=== PATIENT | female | born 1960 | race American Indian/Alaskan Native ===

== ENCOUNTER 2016-11-25 15:40 | Emergency (ER) | payer OTHER, MEDICARE ==
[2016-11-25 16:20] VITALS: BP 182/79
[2016-11-25] MEDS ORDERED: NORCO 5/325 PO ONE (20:37)
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
[2016-11-25 21:01] LABS: Basophils % (Auto) 0.9 % (0.0-1.8); Eosinophils % (Auto) 2.2 % (0.0-4.3); Hematocrit 37.8 % (30.3-42.9); Hemoglobin 12.1 gm/dl (10.1-14.3); Mean Corpuscular HGB Conc 32 % (30-34); Mean Corpuscular Hemoglobin 28 pg (28-32); Mean Corpuscular Volume 86 fl (79-97); Platelet Count 260 K/mm3 (140-440); Red Blood Count 4.41 M/mm3 (3.65-5.03); Red Cell Distribution Width 14.6 % (13.2-15.2); White Blood Count 4.1 K/mm3 (4.5-11.0)
[2016-11-25 21:20] LABS: Anion Gap 16 mmol/L; BUN/Creatinine Ratio 18.75; Blood Urea Nitrogen 15 mg/dL (7-17); Calcium 9.4 mg/dL (8.4-10.2); Carbon Dioxide 27 mmol/L (22-30); Chloride 97.3 mmol/L (98-107); Glucose 88 mg/dL (65-100); Potassium 3.7 mmol/L (3.6-5.0); Sodium 137 mmol/L (137-145)
[2016-11-25 21:24] LABS: Alanine Aminotransferase 11 units/L (7-56); Albumin/Globulin Ratio 1.1 %; Alkaline Phosphatase 93 units/L (35-129); Bilirubin,Total 0.3 mg/dL (0.1-1.2); Total Protein 7.8 g/dL (6.3-8.2)
[2016-11-25 21:25] LABS: Bilirubin,Direct < 0.2 mg/dL (0-0.2); Bilirubin,Indirect 0.1 mg/dL
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
== END 2016-11-26 00:12 | disposition home or self-care (01) ==
LOC: ED 15:40
DX: M54.2 Cervicalgia (principal); M54.5 Low back pain; M19.90 Unspecified osteoarthritis, unspecified site; V89.2XXA Person injured in unspecified motor-vehicle accident, traffic, initial encounter; Y93.89 Activity, other specified; Y99.9 Unspecified external cause status; Y92.410 Unspecified street and highway as the place of occurrence of the external cause
CPT/HCPCS: 36415; 70450; 71020; 72100; 72125; 73521; 80048; 80074; 84484; 85025; 93005; 93010

== ENCOUNTER 2017-03-27 08:41 | Outpatient (CLI) | payer MEDICARE, OTHER ==
--- NOTE | 2017-03-27 10:21 | Ultrasound Report ---
ULTRASOUND ABDOMEN COMPLETE: Technique: Transabdominal ultrasound with color Doppler interrogation. History: abdominal pain, a valuate liver and spleen size. Findings: The liver is normal size, contour and echotexture. The right hepatic lobe measures 15 cm in sagittal plane. The gallbladder dimensions are within normal limits without intraluminal stone, wall thickening, or pericholecystic fluid. The CBD is normal caliber. The visualized portions of the pancreas including the head and proximal body are within normal limits. The kidneys demonstrate no hydronephrosis or mass. Cortical thickness and echogenicity are within normal limits bilaterally. The spleen and aorta are within normal limits. The spleen measures 7.6 cm in length. No aneurysmal dilatation is noted. No ascites. The bladder is unremarkable. IMPRESSION: Unremarkable abdominal ultrasound. No hepatosplenomegaly.
--- NOTE | 2017-03-27 10:27 | XRay Report ---
METASTATIC BONE SURVEY History: Bone pain, myeloma. Findings: Multiple radiographic views of the axial and proximal appendicular skeleton were obtained. There is no evidence for abnormal bony production or destruction. Mild scoliosis and degenerative changes in the spine are noted. Impression: No suspicious bony lesions are detected on x-ray.
== END 2017-03-27 08:42 | disposition home or self-care (01) ==
LOC: US 08:41
PROVIDERS: ATTEND Internal Medicine Hematology & Oncology
DX: D47.2 Monoclonal gammopathy (principal); M41.80 Other forms of scoliosis, site unspecified; M47.899 Other spondylosis, site unspecified; R19.00 Intra-abdominal and pelvic swelling, mass and lump, unspecified site; E66.01 Morbid (severe) obesity due to excess calories
CPT/HCPCS: 76700; 77074

== ENCOUNTER 2018-12-26 15:04 | Emergency (ER) | payer MEDICARE ==
[2018-12-26 15:13] VITALS: BP 146/80
--- NOTE | 2018-12-26 15:21 | Emergency Department Report ---
Alda Doc - Documentation Documentation: 58 y o female presents with bilateral hip pain thats been getting worse since . she states that hip pain is new pt states that pain is so bad that she almost fell ACC evaluate bilat hip xray
--- NOTE | 2018-12-26 16:05 | XRay Report ---
PROCEDURE: XR PELVIS 1-2V TECHNIQUE: AP pelvis HISTORY: pain COMPARISONS: None FINDINGS: Advanced lumbar spondylosis. Mild to moderate degenerative change AC joints. Bony pelvis intact without acute fracture or malalignment Hip joint spaces are unremarkable. No significant arthritic change Visualized proximal femurs unremarkable Calcifications in the pelvis compatible with phlebolith Nonobstructive bowel gas pattern IMPRESSION: Lumbar spondylosis and SI joint degenerative changes as above No significant hip arthritis No acute fracture or malalignment. This document is electronically signed by Barron Olvera MD., December 26 2018 04:03:32 PM ET
[2018-12-26] MEDS ORDERED: TORADOL IM ONE (17:15)
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
== END 2018-12-26 17:32 | disposition home or self-care (01) ==
LOC: ED 15:04
DX: M46.1 Sacroiliitis, not elsewhere classified (principal); M54.30 Sciatica, unspecified side; M19.90 Unspecified osteoarthritis, unspecified site
CPT/HCPCS: 72170; 96372; 99283; J1885

== ENCOUNTER 2019-01-12 19:15 | Emergency (ER) | payer MEDICARE ==
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
[2019-01-12 20:08] VITALS: BP 133/75
[2019-01-12] MEDS ORDERED: TORADOL IM ONE (23:23)
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
== END 2019-01-13 00:44 | disposition home or self-care (01) ==
LOC: ED 19:15
DX: M54.5 Low back pain (principal); M54.32 Sciatica, left side; M54.31 Sciatica, right side; M19.90 Unspecified osteoarthritis, unspecified site; V89.2XXA Person injured in unspecified motor-vehicle accident, traffic, initial encounter; Y93.89 Activity, other specified; Y92.488 Other paved roadways as the place of occurrence of the external cause; Y99.8 Other external cause status
CPT/HCPCS: 72100; 96372; 99283; J1885

== ENCOUNTER 2019-05-02 02:54 | Emergency (ER) | payer MEDICARE ==
[2019-05-02] MEDS ORDERED: MORPHINE IV ONE (04:29)
[2019-05-02] MEDS ORDERED: NACL 0.9% 500 ML 500 ML IV ONE (04:29)
--- NOTE | 2019-05-02 04:31 | Event Note ---
Date: 05/02/19 Medical screening examination: 59-year-old female status post elective plastic surgery at the following: [facility]; believes her surgeon is work Call [phone] [address] [facility] [address] [place] [address] Patient reports having followed up this past for wound check, reports having 5 Geronimo Jensen drains, one drain on the right draining bloody fluid, the others are draining serous fluid, reports that she took off her abdominal wall binding at night because it was hurting her, now coming in with abdominal wall swelling. Suspect postoperative seroma. Checked basic laboratory studies, give pain medicine, obtain CT scan of the abdomen and pelvis. Patient states that she has a follow-up appointment tomorrow with her plastic surgeon. Vital Signs 05/02/19 03:30 Temperature 98.9 F Pulse Rate 87 Respiratory 22 Rate Blood Pressure 137/72 [Right] O2 Sat by Pulse 99 Oximetry
[2019-05-02 04:41] LABS: Hemoglobin 8.5 gm/dl (10.1-14.3); Mean Corpuscular HGB Conc 34 % (30-34); Mean Corpuscular Volume 89 fl (79-97); Platelet Count 450 K/mm3 (140-440); Red Blood Count 2.81 M/mm3 (3.65-5.03); Red Cell Distribution Width 15.1 % (13.2-15.2)
[2019-05-02 04:54] LABS: BUN/Creatinine Ratio 13; Blood Urea Nitrogen 9 mg/dL (7-17); Calcium 8.6 mg/dL (8.4-10.2); Hemolysis Index 0
--- NOTE | 2019-05-02 05:40 | Cat Scan Report ---
CT abdomen pelvis w con INDICATION / CLINICAL INFORMATION: Abdominal pain and swelling status post elective cosmetic surgery. TECHNIQUE: The patient received 100 cc Omnipaque [address] scans at this location are performed using CT dose reduction for ALARA by means of automated exposure control. COMPARISON: None available. FINDINGS: ABDOMEN: There are several small simple cysts scattered throughout the liver. The gallbladder, bile d ucts, pancreas, spleen, adrenal glands and kidneys are normal. There is mild to moderate generalized colonic distention with fluid. There is a moderate amount stool in the distal descending colon and si gmoid colon. The rectum is collapsed. There is no evidence of bowel wall thickening or free air. PELVIS: There are surgical changes involving the anterior abdominal wall probably related to a "tummy tuck". There is a drain along the anterior and lateral abdominal wall on the right. There is soft ti ssue stranding and fluid throughout the subcutaneous fat of the anterior abdominal wall bilaterally. No focal drainable collection is seen. There are a few tiny associated gas bubbles. The distal ureters and urinary bladder are normal. The uterus and ovaries are unremarkable. There is no evidence of appendicitis or diverticulitis. I do not identify a hernia. There is mild spondylosis. IMPRESSION: 1. Surgical changes involving the anterior abdominal wall are likely related to a tummy tuck. No comp lication is seen. 2. The colon is moderately distended with fluid. Hard stool in the distal descending and sigmoid col on. The findings could be related to fecal impaction. Low-grade colitis and other causes of diarrhea should also be considered. Signer Name: Isai Eugene MD Signed: 05/02/2019 5:36 AM Workstation Name: [email or web address]
[2019-05-02 05:55] LABS: INR 1.05 (0.87-1.13)
[2019-05-02 05:56] LABS: Partial Thromboplastin Time 36.5 Sec. (24.2-36.6)
[2019-05-02 07:36] VITALS: BP 122/77
--- NOTE | 2019-05-02 07:45 | Emergency Department Report ---
ED General Adult HPI - General Chief complaint: Abdominal Pain Stated complaint: ABD PAIN Time Seen by Provider: 05/02/19 06:39 Source: patient, EMS Mode of arrival: Stretcher Limitations: No Limitations - History of Present Illness Initial comments: The patient presents to the emergency department with a chief complaint of abdominal pain and constipation. The patient states that she had a tummy tuck and breast lift on April 20 systolic on his issues with having bowel movements. Patient states she's taken Dulcolax and magnesium citrate to no sherly [place]. Patient describes her abdominal pain as a cramping sensation and denies any fever. -: Gradual Location: abdomen Severity scale (0 -10): 1 Quality: other (cramping) Consistency: constant Improves with: none Worsens with: none Associated Symptoms: denies other symptoms Treatments Prior to Arrival: none - Related Data Home Medications Medication Instructions Recorded Confirmed Last Taken Ibuprofen [Motrin] 800 mg PO Q8HR PRN 04/23/16 04/23/16 04/23/16 Previous Rx's Medication Instructions Recorded Last Taken Type Meclizine HCl 25 mg PO TID #30 tablet 12/17/14 04/23/16 Rx HYDROcodone/APAP 5-325 [[place] 1 each PO Q6HR PRN #15 tablet 11/25/16 Unknown Rx 5/325] Cyclobenzaprine [Flexeril] 10 mg PO TID PRN #20 tablet 12/26/18 Unknown Rx HYDROcodone/ACETAMINOPHEN [[place] 1 each PO Q6H PRN #10 tablet 12/26/18 Unknown Rx 5-325 Tablet] Ibuprofen [Ibuprofen 400] 400 mg PO QID 5 Days #15 tablet 12/26/18 Unknown Rx HYDROcodone/APAP 5-325 [[place] 1 each PO Q6HR PRN #7 tablet 01/13/19 Unknown Rx 5/325] Methylnaltrexone [place] [Relistor] 150 mg PO QDAY #6 tablet 05/02/19 Unknown Rx Allergies Allergy/AdvReac Type Severity Reaction Status Date / Time No Known Allergies Allergy Verified 12/17/14 15:15 ED Review of Systems ROS: Stated complaint: ABD PAIN Other details as noted in HPI Constitutional: denies: chills, fever Eyes: denies: eye pain, eye discharge, vision change ENT: denies: ear pain, throat pain Respiratory: denies: cough, shortness of breath, wheezing Cardiovascular: denies: chest pain, palpitations Endocrine: no symptoms reported Gastrointestinal: abdominal pain. denies: nausea, diarrhea Genitourinary: denies: urgency, dysuria, discharge Musculoskeletal: denies: back pain, joint swelling, arthralgia Skin: denies: rash, lesions Neurological: denies: headache, weakness, paresthesias Psychiatric: denies: anxiety, depression Hematological/Lymphatic: denies: easy bleeding, easy bruising ED Past Medical Hx - Past Medical History Previous Medical History?: Yes Hx Arthritis: Yes Additional medical history: HERPES. DJD - Surgical History Past Surgical History?: Yes Hx Breast Surgery: Yes (April 20 2019) Additional Surgical History: Tiffani Stallings April 202018 - Social History Smoking Status: Unknown if ever smoked Substance Use Type: Prescribed - Medications Home Medications: Home Medications Medication Instructions Recorded Confirmed Last Taken Type Meclizine HCl 25 mg PO TID #30 tablet 12/17/14 04/23/16 Rx Ibuprofen [Motrin] 800 mg PO Q8HR PRN 04/23/16 04/23/16 04/23/16 History HYDROcodone/APAP 5-325 [[place] 1 each PO Q6HR PRN #15 tablet 11/25/16 Unknown Rx 5/325] Cyclobenzaprine [Flexeril] 10 mg PO TID PRN #20 tablet 12/26/18 Unknown Rx HYDROcodone/ACETAMINOPHEN [[place] 1 each PO Q6H PRN #10 tablet 12/26/18 Unknown Rx 5-325 Tablet] Ibuprofen [Ibuprofen 400] 400 mg PO QID 5 Days #15 tablet 12/26/18 Unknown Rx HYDROcodone/APAP 5-325 [[place] 1 each PO Q6HR PRN #7 tablet 01/13/19 Unknown Rx 5/325] Methylnaltrexone [place] [Relistor] 150 mg PO QDAY #6 tablet 05/02/19 Unknown Rx ED Physical Exam - General Limitations: No Limitations General appearance: alert, in no apparent distress - Head Head exam: Present: atraumatic, normocephalic - Eye Eye exam: Present: normal appearance, PERRL, EOMI - ENT ENT exam: Present: mucous membranes moist - Neck Neck exam: Present: normal inspection - Respiratory Respiratory exam: Present: normal lung sounds bilaterally. Absent: respiratory distress - Cardiovascular Cardiovascular Exam: Present: regular rate, normal rhythm. Absent: systolic murmur, diastolic murmur, rubs, gallop - GI/Abdominal GI/Abdominal exam: Present: soft, normal bowel sounds, other (surgical wounds are healing without signs of infection). Absent: distended, tenderness - Extremities Exam Extremities exam: Present: normal inspection - Back Exam Back exam: Present: normal inspection - Neurological Exam Neurological exam: Present: alert, oriented X3 - Psychiatric Psychiatric exam: Present: normal affect, normal mood - Skin Skin exam: Present: warm, dry, intact, normal color. Absent: rash ED Course Vital Signs 05/02/19 05/02/19 05/02/19 03:20 03:30 03:46 Temperature 98.9 F Pulse Rate 82 85 Respiratory 24 21 Rate Blood Pressure 132/71 135/67 Blood Pressure 137/72 [Right] O2 Sat by Pulse 96 95 96 Oximetry 05/02/19 05/02/19 05/02/19 04:00 04:15 04:30 Temperature Pulse Rate 77 78 82 Respiratory 21 21 Rate Blood Pressure 144/76 139/74 133/75 Blood Pressure [Right] O2 Sat by Pulse 98 97 97 Oximetry 05/02/19 05/02/19 05/02/19 04:45 05:14 05:16 Temperature Pulse Rate 83 90 89 Respiratory 17 17 25 H Rate Blood Pressure 143/68 143/68 143/68 Blood Pressure [Right] O2 Sat by Pulse 100 96 94 Oximetry 05/02/19 05/02/19 05/02/19 05:30 05:45 06:00 Temperature Pulse Rate 85 82 80 Respiratory 16 19 19 Rate Blood Pressure 134/58 130/70 143/68 Blood Pressure [Right] O2 Sat by Pulse 95 98 99 Oximetry 05/02/19 07:35 Temperature Pulse Rate 79 Respiratory 22 Rate Blood Pressure Blood Pressure 122/77 [Right] O2 Sat by Pulse 96 Oximetry ED Medical Decision Making - Lab Data Result diagrams: 05/02/19 04:21 05/02/19 04:21 Lab Results 05/02/19 05/02/19 05/02/19 Range/Units 04:21 04:21 05:14 WBC 9.0 (4.5-11.0) K/mm3 RBC 2.81 L (3.65-5.03) M/mm3 Hgb 8.5 L (10.1-14.3) gm/dl Hct 25.0 L (30.3-42.9) % MCV 89 (79-97) fl MCH 30 (28-32) pg MCHC 34 (30-34) % RDW 15.1 (13.2-15.2) % Plt Count 450 H (140-440) K/mm3 PT 13.4 (12.2-14.9) Sec. INR 1.05 (0.87-1.13) APTT 36.5 (24.2-36.6) Sec. Sodium 140 (137-145) mmol/L Potassium 4.1 (3.6-5.0) mmol/L Chloride 103.0 (98-107) mmol/L Carbon Dioxide 28 (22-30) mmol/L Anion Gap 13 mmol/L BUN 9 (7-17) mg/dL Creatinine 0.7 (0.7-1.2) mg/dL Estimated GFR > 60 ml/min BUN/Creatinine Ratio 13 % Glucose 106 H (65-100) mg/dL Calcium 8.6 (8.4-10.2) mg/dL Magnesium (1.7-2.3) mg/dL Total Creatine Kinase (30-135) units/L 05/02/19 Range/Units 05:14 WBC (4.5-11.0) K/mm3 RBC (3.65-5.03) M/mm3 Hgb (10.1-14.3) gm/dl Hct (30.3-42.9) % MCV (79-97) fl MCH (28-32) pg MCHC (30-34) % RDW (13.2-15.2) % Plt Count (140-440) K/mm3 PT (12.2-14.9) Sec. INR (0.87-1.13) APTT (24.2-36.6) Sec. Sodium (137-145) mmol/L Potassium (3.6-5.0) mmol/L Chloride (98-107) mmol/L Carbon Dioxide (22-30) mmol/L Anion Gap mmol/L BUN (7-17) mg/dL Creatinine (0.7-1.2) mg/dL Estimated GFR ml/min BUN/Creatinine Ratio % Glucose (65-100) mg/dL Calcium (8.4-10.2) mg/dL Magnesium 2.40 H (1.7-2.3) mg/dL Total Creatine Kinase 104 (30-135) units/L - Radiology Data Radiology results: report reviewed - Medical Decision Making Discussed results with patient and the plan of care Patient endorses taking hydrocortisone at home for the pain status post abdominoplasty. Discussed with patient how opioids can cause constipation Critical care attestation.: If time is entered above; I have spent that time in minutes in the direct care of this critically ill patient, excluding procedure time. ED Disposition Clinical Impression: Abdominal pain, Constipation Disposition: DC-01 TO HOME OR SELFCARE Is pt being admited?: No Does the pt Need Aspirin: No Condition: Stable Instructions: Abdominal Pain (ED), Constipation (ED) Additional Instructions: return if worse Prescriptions: Methylnaltrexone [place] [Relistor] 150 mg PO QDAY #6 tablet Referrals: PRIMARY CARE, [Primary Care Provider] - 3-5 Days JAI MOODY MD [Staff Physician] - 3-5 Days Time of Disposition: 07:44
== END 2019-05-02 08:12 | disposition home or self-care (01) ==
LOC: ED 02:54
DX: K59.00 Constipation, unspecified (principal); M19.90 Unspecified osteoarthritis, unspecified site; Z79.1 Long term (current) use of non-steroidal anti-inflammatories (NSAID); Z79.899 Other long term (current) drug therapy
CPT/HCPCS: 36415; 74177; 80048; 82550; 83735; 85027; 85610; 85730; 96374; 99285; J2270; J7040; Q9967

== ENCOUNTER 2020-04-04 18:40 | Emergency (ER) | payer MEDICARE ==
--- NOTE | 2020-04-04 20:24 | Event Note ---
ED Screening Note ED Screening Note: inc episodes dizzy no n/v/d no cp sob sp fall with r knee pain poor informant This initial assessment/diagnostic orders/clinical plan/treatment(s) is/are subject to change based on patients health status, clinical progression and re- assessment by fellow clinical providers in the ED. Further treatment and workup at subsequent clinical providers discretion. Patient/guardian urged not to elope from the ED as their condition may be serious if not clinically assessed and managed. Initial orders include: labs ua ekg
[2020-04-04 22:15] LABS: Basophils % (Auto) 0.6 % (0.0-1.8); Eosinophils % (Auto) 1.4 % (0.0-4.3); Hematocrit 36.4 % (30.3-42.9); Hemoglobin 11.9 gm/dl (10.1-14.3); Lymphocytes # (Auto) 1.1 K/mm3 (1.2-5.4); Lymphocytes % (Auto) 29.5 % (13.4-35.0); Mean Corpuscular HGB Conc 33 % (30-34); Mean Corpuscular Volume 89 fl (79-97); Monocytes # (Auto) 0.3 K/mm3 (0.0-0.8); Monocytes % (Auto) 7.6 % (0.0-7.3); Platelet Count 274 K/mm3 (140-440); Red Blood Count 4.09 M/mm3 (3.65-5.03); Red Cell Distribution Width 14.4 % (13.2-15.2)
[2020-04-04 22:42] LABS: Alanine Aminotransferase 11 units/L (7-56); BUN/Creatinine Ratio 15; Blood Urea Nitrogen 16 mg/dL (7-17); Calcium 9.2 mg/dL (8.4-10.2); Hemolysis Index 3
[2020-04-05] MEDS ORDERED: MECLIZINE 25 MG TAB PO ONE (00:18)
--- NOTE | 2020-04-05 00:49 | Emergency Department Report ---
ED Dizziness HPI - General Chief Complaint: Dizziness Stated Complaint: VERTIGO Time Seen by Provider: 04/04/20 20:16 Source: patient Mode of arrival: Ambulatory Limitations: No Limitations - History of Present Illness Initial Comments: 60-year-old female with history of vertigo, arthritis, presents to ED with dizziness since this morning. Patient states when she awoke this morning it felt like the room was spinning. Patient states this feels exactly the same as it did when she was diagnosed with vertigo. Patient states at that time she was given medication for it and it helped. Today, patient states she got so dizzy that she fell down onto her right knee. Patient states she already has a history of degenerative joint disease in both knees. Patient reports pain to the right knee. She denies any headache, nausea or vomiting, fever, cough, shortness of breath. MD Complaint: dizziness -: This morning Timing: awoke with symptoms Description: "room spinning" History of Same: Yes Severity: moderate Improves With: nothing Worsens With: nothing, movement Associated Symptoms: denies: chest pain, cough, fever/chills, shortness of breath, syncope - Related Data Home Medications Medication Instructions Recorded Confirmed Last Taken Ibuprofen [Motrin] 800 mg PO Q8HR PRN 04/23/16 04/23/16 04/23/16 Previous Rx's Medication Instructions Recorded Last Taken Type Meclizine HCl 25 mg PO TID #30 tablet 12/17/14 04/23/16 Rx HYDROcodone/APAP 5-325 [[place] 1 each PO Q6HR PRN #15 tablet 11/25/16 Unknown Rx 5/325] Cyclobenzaprine [Flexeril] 10 mg PO TID PRN #20 tablet 12/26/18 Unknown Rx HYDROcodone/ACETAMINOPHEN [[place] 1 each PO Q6H PRN #10 tablet 12/26/18 Unknown Rx 5-325 Tablet] Ibuprofen [Ibuprofen 400] 400 mg PO QID 5 Days #15 tablet 12/26/18 Unknown Rx HYDROcodone/APAP 5-325 [[place] 1 each PO Q6HR PRN #7 tablet 01/13/19 Unknown Rx 5/325] Methylnaltrexone [place] [Relistor] 150 mg PO QDAY #6 tablet 05/02/19 Unknown Rx Meclizine [Antivert] 25 mg PO TID PRN #20 tablet 04/05/20 Unknown Rx Nitrofurantoin [place]/M-Cryst 100 mg PO Q12HR 7 Days #14 capsule 04/05/20 Unknown Rx [Macrobid CAP] Allergies Allergy/AdvReac Type Severity Reaction Status Date / Time No Known Allergies Allergy Verified 12/17/14 15:15 ED Review of Systems ROS: Stated complaint: VERTIGO Other details as noted in HPI Comment: All other systems reviewed and negative Constitutional: denies: chills, fever Respiratory: denies: cough, shortness of breath Cardiovascular: denies: chest pain Gastrointestinal: denies: nausea, vomiting Musculoskeletal: as per HPI Neurological: vertigo. denies: headache ED Past Medical Hx - Past Medical History Previous Medical History?: Yes Hx Arthritis: Yes Additional medical history: HERPES. DJD. vertigo - Surgical History Hx Breast Surgery: Yes (April 20 2019) Additional Surgical History: Tummy Tuck April 202018 - Social History Smoking Status: Never Smoker Substance Use Type: None - Medications Home Medications: Home Medications Medication Instructions Recorded Confirmed Last Taken Type Meclizine HCl 25 mg PO TID #30 tablet 12/17/14 04/23/16 Rx Ibuprofen [Motrin] 800 mg PO Q8HR PRN 04/23/16 04/23/16 04/23/16 History HYDROcodone/APAP 5-325 [[place] 1 each PO Q6HR PRN #15 tablet 11/25/16 Unknown Rx 5/325] Cyclobenzaprine [Flexeril] 10 mg PO TID PRN #20 tablet 12/26/18 Unknown Rx HYDROcodone/ACETAMINOPHEN [[place] 1 each PO Q6H PRN #10 tablet 12/26/18 Unknown Rx 5-325 Tablet] Ibuprofen [Ibuprofen 400] 400 mg PO QID 5 Days #15 tablet 12/26/18 Unknown Rx HYDROcodone/APAP 5-325 [[place] 1 each PO Q6HR PRN #7 tablet 01/13/19 Unknown Rx 5/325] Methylnaltrexone [place] [Relistor] 150 mg PO QDAY #6 tablet 05/02/19 Unknown Rx Meclizine [Antivert] 25 mg PO TID PRN #20 tablet 04/05/20 Unknown Rx Nitrofurantoin [place]/M-Cryst 100 mg PO Q12HR 7 Days #14 capsule 04/05/20 Unknown Rx [Macrobid CAP] ED Physical Exam - General Limitations: No Limitations ED Course Vital Signs 04/04/20 04/05/20 20:10 01:02 Temperature 98.4 F 97.9 F Pulse Rate 54 L 54 L Respiratory 18 18 Rate Blood Pressure 147/74 Blood Pressure 136/77 [Right] O2 Sat by Pulse 100 100 Oximetry ED Medical Decision Making - Lab Data Result diagrams: 04/04/20 22:00 04/04/20 22:00 - EKG Data -: EKG Interpreted by Me EKG shows normal: sinus rhythm, axis, intervals, QRS complexes, ST-T waves Rate: normal - EKG Data Interpretation: LVH, other (lateral T wave inversions) - Radiology Data Radiology results: report reviewed, image reviewed - Medical Decision Making 60-year-old female with vertigo. CT head negative. UA shows evidence of UTI, so she will be given a prescription for antibiotics. Vital signs are stable. Much better after receiving meclizine here in the ED. Patient will be discharged at this time with a prescription for meclizine. Outpatient follow-up advised. Return precautions given. - Differential Diagnosis Vertigo, intracranial abnormality, infection Critical care attestation.: If time is entered above; I have spent that time in minutes in the direct care of this critically ill patient, excluding procedure time. ED Disposition Clinical Impression: Vertigo, Contusion of right knee, UTI (urinary tract infection) Disposition: TO HOME OR SELFCARE Is pt being admited?: No Condition: Stable Instructions: Urinary Tract Infection in Women (ED), Vertigo (ED) Prescriptions: Meclizine [Antivert] 25 mg PO TID PRN #20 tablet PRN Reason: Vertigo Nitrofurantoin [place]/M-Cryst [Macrobid CAP] 100 mg PO Q12HR 7 Days #14 capsule Referrals: PRIMARY MD LISANDRA [Primary Care Provider] - 3-5 Days CHEVY CLEMENT MD [Referring] - 3-5 Days Time of Disposition: 02:25
[2020-04-05 01:02] VITALS: BP 136/77
--- NOTE | 2020-04-05 01:19 | XRay Report ---
Right knee 3 views INDICATION: Right knee pain following injury IMPRESSION: advanced tricompartmental degenerative osteoarthrosis of the right knee. Small right knee effusion. No displaced knee fracture identified. Signer Name: Emmanuel Camacho MD Signed: 04/05/2020 1:14 AM Workstation Name: [id number]
--- NOTE | 2020-04-05 01:48 | Cat Scan Report ---
CT head without contrast INDICATION : Recent fall secondary to dizziness. Headache. TECHNIQUE: Axial imaging performed from the skull apex through the skull base without the use of con trast. All CT examinations performed at this facility utilize dose modulation, iterative reconstruct ion or weight-based dosing, when appropriate, to reduce radiation dose to as low as reasonably achiev able. COMPARISON: None FINDINGS: No acute intracranial hemorrhage or parenchymal abnormality. There appears to be a slight atrophy of the cerebellum Ventricles are normal in size and appear symmetric. Soft tissues includin g the orbits appear normal. No acute osseous abnormality. Sinuses and mastoid air cells are clear . IMPRESSION: No acute abnormality. Mild atrophy of the cerebellum, similar to 11/25/2016. Signer Name: Emmanuel Camacho MD Signed: 04/05/2020 1:43 AM Workstation Name: [id number]
[2020-04-05 02:21] LABS: Bilirubin,Urine NEG (Negative); Blood,Urine SM (Negative); Color,Urine Yellow (Yellow); Mucus,Urine FEW /HPF; Protein,Urine <15 mg/dL mg/dL (Negative); Urobilinogen,Urine < 2.0 mg/dL (<2.0)
== END 2020-04-05 02:34 | disposition home or self-care (01) ==
LOC: ED 18:40
DX: S80.01XA Contusion of right knee, initial encounter (principal); N39.0 Urinary tract infection, site not specified; R42 Dizziness and giddiness; M19.90 Unspecified osteoarthritis, unspecified site; Z98.890 Other specified postprocedural states; Z79.1 Long term (current) use of non-steroidal anti-inflammatories (NSAID); Z79.899 Other long term (current) drug therapy; W19.XXXA Unspecified fall, initial encounter; Y93.89 Activity, other specified; Y92.89 Other specified places as the place of occurrence of the external cause; Y99.8 Other external cause status
CPT/HCPCS: 36415; 70450; 80053; 81001; 82550; 82553; 84443; 84484; 85025; 87086; 93005

== ENCOUNTER 2020-08-21 17:04 | Emergency (ER) | payer MEDICARE ==
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
[2020-08-21 21:15] VITALS: BP 127/72
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
[2020-08-22] MEDS ORDERED: IBUPROFEN 600 MG TAB PO ONE (00:28)
[2020-08-22] MEDS ORDERED: ONDANSETRON 4 MG ODT TAB PO ONE (00:28)
[2020-08-22] MEDS ORDERED: ACETAMINOPHEN 500 MG TAB PO ONE (00:28)
[2020-08-22] MEDS ORDERED: predniSONE 50 MG TAB PO ONE (00:28)
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
== END 2020-08-22 01:00 | disposition home or self-care (01) ==
LOC: ED 17:04
DX: M54.42 Lumbago with sciatica, left side (principal); M54.41 Lumbago with sciatica, right side; M62.830 Muscle spasm of back; M19.91 Primary osteoarthritis, unspecified site; Z98.890 Other specified postprocedural states; Z79.1 Long term (current) use of non-steroidal anti-inflammatories (NSAID); Z79.899 Other long term (current) drug therapy; V49.49XA Driver injured in collision with other motor vehicles in traffic accident, initial encounter; Y93.89 Activity, other specified; Y92.410 Unspecified street and highway as the place of occurrence of the external cause; Y99.8 Other external cause status
CPT/HCPCS: 72100; 99283; J7512; Q0162

== ENCOUNTER 2022-04-16 04:24 | Emergency (ER) | payer MEDICARE ==
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
[2022-04-16 09:31] VITALS: BP 138/74
== END 2022-04-16 09:30 | disposition home or self-care (01) ==
LOC: ED 04:24
DX: S00.93XA Contusion of unspecified part of head, initial encounter (principal); W19.XXXA Unspecified fall, initial encounter; Y93.89 Activity, other specified; Y92.89 Other specified places as the place of occurrence of the external cause; Y99.8 Other external cause status
CPT/HCPCS: 70450; 99283